=== PATIENT | male | born 1975 | race Caucasian/White ===

== ENCOUNTER 2017-04-17 00:19 | Emergency (ER) | payer MEDICAID ==
[~2017-04-17] VITALS: Ht 167.6 cm; Wt 96.0 kg
[~2017-04-17 00:19] MED LIST: ATOR20TA38 PO; INSU100I14 SC; LANT3I SC; METF500T PO
[2017-04-17 00:29] VITALS: Ht 167.6 cm; Wt 96.0 kg
[2017-04-17] MEDS: KETOROLAC 60 MG INJ IM STA ×2 (06:47→06:51)
[2017-04-17] MEDS ORDERED: LIDOCAINE 2% (MDV) 20 ML INJ INJ ONE (07:00)
--- NOTE | 2017-04-17 08:05 | RADRPT ---
PROCEDURE: XR right Hand. CLINICAL INDICATION: Right hand pain, third digit pain TECHNIQUE: Three views of the right hand were obtained. COMPARISON: No prior studies are available for comparison. FINDINGS: There is no evidence of acute fracture. Note is made that the middle finger is not well assessed on the lateral radiograph due to overlap. Alignment is normal. Joint spaces are preserved. Visualized soft tissues are grossly unremarkable. IMPRESSION: 1. No radiographic evidence of acute osseous abnormality. Middle finger not well assessed on latera l view due to overlap. RPTAT: UU .Lio Scales MD, MD Date Time Electronically viewed and signed by .Lio Scales MD, on 04/17/2017 08:04 .K/
[2017-04-17] MEDS ORDERED: IBUP-1542 PO (08:59)
[2017-04-17] MEDS ORDERED: CEPH-443 PO (08:59)
[2017-04-17 09:07] VITALS: BP 137/69; PULSE 78; RESP 18; TEMP 98.1
--- NOTE | 2017-04-17 10:07 | ERD ---
ER Documentation Chief Complaint Date/Time DATE: 04/17/17 TIME: 10:04 Chief Complaint pt. was scalling a fish, then his right middle finger got jammed HPI 42-year-old right-handed male patient with a past medical history of diabetes presents to the ED complaining of a a fishbone stuck on his right middle finger after he was trying to clean the fish. Reports that this occurred earlier today. Reports that it is a sharp type of pain and rates it a 4 out of 10. States that it was about 1 cm in size. Denies any fever, chills, loss of sensation, loss of range of motion. ROS All systems reviewed and are negative except as per history of present illness. Medications Home Meds Active Scripts Ibuprofen* (Motrin*) 600 Mg Tab, 600 MG PO Q6, #30 TAB Prov:AVERY BANERJEE PA-C 04/17/17 Cephalexin* (Keflex*) 500 Mg Capsule, 500 MG PO QID for 7 Days, CAP Prov:AVERY BANERJEE PA-C 04/17/17 Insulin Lispro (Humalog) 100 U/Ml Insuln.pen, 7 UNITS SC WITH MEALS for 30 Days , EA 3 Refills Prov:RAHI,DIANDRA S. 12/11/15 Metformin Hcl (Glucophage) 500 Mg Tab, 500 MG PO AC BREAKFAST DINNER for 30 Days , TAB 3 Refills Prov:RAHI,DIANDRA S. 12/11/15 Insulin Glargine* (Lantus*) 100 Unit/Ml Soln, 20 UNIT SC QHS for 30 Days, 3 Refills Prov:RASHAWNA,DIANDRA S. 12/11/15 Atorvastatin Calcium* (Atorvastatin Calcium*) 20 Mg Tab, 20 MG PO HS for 30 Days , TAB 3 Refills Prov:RAHI,DIANDRA S. 12/11/15 Allergies Allergies: Coded Allergies: penicillin (Verified Allergy, Unknown, 12/11/15) PMhx/Soc History of Surgery: No Anesthesia Reaction: No Hx Neurological Disorder: No Hx Respiratory Disorders: No Hx Cardiac Disorders: No Hx Psychiatric Problems: No Hx Miscellaneous Medical Probl: No Hx Alcohol Use: No Hx Substance Use: No Hx Tobacco Use: No Smoking Status: Never smoker Physical Exam Vitals Vital Signs Date Time Temp Pulse Resp B/P Pulse Ox O2 Delivery O2 Flow Rate FiO2 04/17/17 09:07 98.1 78 18 137/69 98 Room Air 04/17/17 00:29 97.4 84 18 156/89 96 Physical Exam Const: [id number], well-nourished. In no acute distress. Head: Atraumatic, normocephalic Eyes: Normal Conjunctiva without injection ENT: Normal external ear, nose and mouth. Neck: Full range of motion. No meningismus. Resp: Clear to auscultation bilaterally. No wheezing, rhonchi, rales, or crackles. No accessory muscle use. No retractions. Cardio: Regular rate and rhythm, no murmurs Skin: No petechiae or rashes Back: No midline tenderness. No CVA tenderness. Ext: No cyanosis, or edema. Cap refill less than 2 seconds. Distal pulses intact bilaterally. Tenderness palpation of the right mid DIP of the dorsal aspect of right hand. Nonpalpable fishbone noted. Slight erythema. Slight edema. No purulent discharge. Full range of motion of PIP, DIP, MCP joints bilaterally. Neur: Awake and alert. Normal gait and coordination. Muscle strength 5/5. Sensation intact bilaterally. Psych: Normal Mood and Affect Results 24 hrs Current Medications Medications (Trade) Dose Ordered Sig/Silvana Route PRN Reason Start Time Stop Time Status Last Admin Dose Admin Ketorolac Tromethamine (Toradol) 60 mg ONCE STAT IM 04/17/17 06:40 04/17/17 06:41 DC 04/17/17 06:51 Lidocaine (Xylocaine 2% (Mdv) 20 ml) 20 ml ONCE ONCE INJ 04/17/17 07:00 04/17/17 07:01 DC Procedures/MDM This is a 42-year-old male patient with a past medical history of diabetes presents to the ED complaining of a small fishbone stuck in his right third middle finger. Patient is afebrile and nontoxic-appearing. Patient has normal vital signs. An attempt to remove the foreign body was performed at this time with patient's consent. 2% lidocaine was used to perform a digital block. She tolerated the procedure. Foreign body is still not removed. I instructed patient to apply warm compresses. Patient is appropriate for outpatient management with antibiotics due to the appearance of it having slight erythema and edema. Patient is neurovascularly intact. Patient's extremity symptoms have stabilized while they have been evaluated in the department and are appropriate for outpatient follow up. No evidence of fractures, dislocations, compartment syndrome, neurologic injury, vascular injury, open joint, open fracture, tendon laceration, septic arthritis, osteomyelitis, DVT, foreign body , or other emergent conditions. Discharge medications: Keflex, ibuprofen Follow up with primary care physician in 1-2 days. Instructed patient to return to the ED sooner for any worsening symptoms. Patient's questions were answered. Patient understood and agreed with discharge plan. Patient discharged stable. Departure Diagnosis: Primary Impression: Foreign body of finger of right hand Encounter type: initial encounter Qualified Code: S60.459A - Foreign body of finger of right hand, initial encounter Condition: Stable Patient Instructions: Foreign Body, Soft Tissue [Not Removed] [facility] Usted se farrell hecho un examen mdico de control que le indica que no est en rito condicin que requiera tratamiento urgente en el Departamento de Emergencia. Un estudio ms profundo y el tratamiento de bauman condicin pueden esperar sin ningn riesgo hasta que usted sea atendida/o en el consultorio de bauman mdico o rito cl venice. Es responsabilidad suya arreglar rito kenneth para el seguimiento del domenico. MANEJO DE CONDICIONES NO URGENTES EN EL FUTURO 1) Si usted tiene un mdico de atencin primaria: Usted debera llamar a bauman mdico de atencin primaria antes de venir al departamento de emergencia. Despus de las horas de consultorio, bauman doctor o bauman asociado/a est disponible por telfono. El mdico o enfermero de nat[place] en el servicio telefnico puede asesorarle por marisol medio para atender el problema, o domenico contrario se puede programar rito kenneth. 2) Si usted no tiene un mdico de atencin primaria: Llame al mdico o clnica de referencia que aparece abajo brian las horas de consultorio para hacer rito kenneth para que le vean. CLINICAS: [facility] [phone] [facility] [phone] [facility] [phone] [facility] [phone] [facility] [phone] [address] [facility]. [phone] [address] [facility]. [facility] () Usted se farrell hecho un examen mdico de control que le indica que no est en rito condicin que requiera tratamiento urgente en el Departamento de Emergencia. Un estudio ms profundo y el tratamiento de bauman condicin pueden esperar sin ningn riesgo hasta que usted sea atendida/o en el consultorio de bauman mdico o rito cl venice. Es responsabilidad suya arreglar rito kenneth para el seguimiento del domenico. MANEJO DE CONDICIONES NO URGENTES EN EL FUTURO 1) Si usted tiene un mdico de atencin primaria: Usted debera llamar a bauman mdico de atencin primaria antes de venir al departamento de emergencia. Despus de las horas de consultorio, bauman doctor o bauman asociado/a est disponible por telfono. El mdico o enfermero de nat[place] en el servicio telefnico puede asesorarle por marisol medio para atender el problema, o domenico contrario se puede programar rito kenneth. 2) Si usted no tiene un mdico de atencin primaria: Llame al mdico o condado institucions de referencia que aparece abajo brian las horas de consultorio para hacer rito kenneth para que le vean. SI USTED NO PUEDE PAGAR PARA SAMUEL UN MEDICO puede ir a: [facility] [address] [place] [address] [facility] [address] [place] [address] [facility] [address] [place] [address] [facility] [address] [place] [address] [facility] Additional Instructions: Aplicar compresas calientes en el dedo Llame al doctor DANIS y magy rito KENNETH PARA DENTRO DE 2-3 BRONSON.Dgale a la secretaria que nosotros le instruimos hacer esta kenneth.Avise o llame si bauman condicin se empeora antes de la kenneth. Regresa aqui si peor o no mejor. AVERY BANERJEE PA-C Apr 17, 2017 10:07
== END 2017-04-17 09:08 | disposition home or self-care (01) ==
LOC: FTE 00:19
DX: S60.452A Superficial foreign body of right middle finger, initial encounter (principal); E11.9 Type 2 diabetes mellitus without complications; X58.XXXA Exposure to other specified factors, initial encounter; Y92.9 Unspecified place or not applicable; Z79.4 Long term (current) use of insulin; Z79.84 Long term (current) use of oral hypoglycemic drugs
CPT/HCPCS: 73130; 96372; J1885; Z7502; Z7610